=== PATIENT | female | born 1945 | race Caucasian/White ===

== ENCOUNTER → 2016-10-06 | Outpatient (CLI) | payer MEDICARE | END | disposition home or self-care (01) | LOC: GMAL 10:53 | PROVIDERS: ATTEND Family Medicine | DX: D51.3 Other dietary vitamin B12 deficiency anemia (principal) ==

== ENCOUNTER → 2016-11-19 | Outpatient (CLI) | payer MEDICARE ==
--- NOTE | 2016-11-21 05:54 | MRI ---
Procedure: MR right shoulder EXTREMITY WITHOUT THEN WITH IV CONTRAST Exam Date: 11/19/2016 12:00 AM CDT Ordering Provider: Yolie Spangler Clinical Indication: SHOULDER PAIN Comparison: None TECHNIQUE: Multiplanar, multi sequence MRI images of the right shoulder were obtained with and without IV contrast. FINDINGS: Increased signal and thinning of the distal supraspinatus tendons compatible with tendinosis. Otherwise, no high-grade partial or full-thickness rotator cuff tear. Rotator cuff muscle bulk is normal in signal and morphology. Long head of the biceps is well situated within the intertubercular groove. Biceps labral anchor is intact. Labrum is intact. Mild degenerative changes of the acromioclavicular joint. No fluid seen within the subdeltoid/subacromial bursa. Type 2 acromion is noted. Glenohumeral joint cartilage is intact. No large joint effusion or loose body. Marrow signal is otherwise unremarkable without fracture or subluxation. No pathologic enhancement on postcontrast imaging IMPRESSION: 1. Mild supraspinatus distal tendinosis without significant rotator cuff tear. 2. Mild AC joint degenerative changes. 3. Otherwise, unremarkable right shoulder MRI with and without IV contrast. Electronically signed by: Neel Spears MD 11/21/2016 5:53 AM CDT
== END ==
LOC: MRI 12:58
PROVIDERS: ATTEND Nurse Practitioner Family
DX: M25.519 Pain in unspecified shoulder (principal)

== ENCOUNTER → 2017-04-20 | Outpatient (CLI) | payer MEDICARE | END | disposition home or self-care (01) | LOC: GMAL 10:49 | PROVIDERS: ATTEND Family Medicine | DX: D51.3 Other dietary vitamin B12 deficiency anemia (principal); E55.9 Vitamin D deficiency, unspecified; Z79.899 Other long term (current) drug therapy ==

== ENCOUNTER → 2017-05-05 | Outpatient (CLI) | payer MEDICARE ==
--- NOTE | 2017-05-11 11:07 | MAM ---
EXAM DESCRIPTION: 3D Screening BILATERAL : Digital Mammography. CLINICAL HISTORY: 72 years Female SCREENING . No complaints. Remote family history of breast cancer. Postmenopausal. No HRT. COMPARISON: Baseline study at this facility.. No prior reports available. TECHNIQUE: Bilateral CC and MLO projection full-field images, 3-D tomosynthesis digital mammographic technique. Also bilateral synthesized CC/ MLO full-field images. CAD not utilized. FINDINGS: The breast parenchymal density pattern is: Heterogeneously dense breast tissue, which may obscure small masses. No skin thickening or nipple retraction bilateral solitary microcalcifications. Mass density versus focal asymmetry uniform density and similar to the surrounding fibroglandular tissues in the retroareolar left breast at 1200 clock position, 2 cm from the nipple. Partially well-defined margins. No calcifications. Bilateral intramammary lymph nodes. No focal, stellate mass or density, focal asymmetry , and no suspicious microcalcifications right breast. IMPRESSION: BI-RADS CATEGORY: 0 - INCOMPLETE- Need additional imaging evaluation. FOLLOW-UP: Recall for additional imagin-D tomosynthesis left breast full-field LM imaging. Targeted left breast ultrasound retroareolar region.. Written communication concerning the IMPRESSION and Follow-up, will be mailed to the patient and referring health care provider. Electronically signed by: Thaddeus Goddard MD 05/11/2017 11:06 AM [employer]
== END ==
LOC: MAMMO 11:00
PROVIDERS: ATTEND Family Medicine
DX: Z12.31 Encounter for screening mammogram for malignant neoplasm of breast (principal)

== ENCOUNTER → 2017-06-08 | Outpatient (CLI) | payer MEDICARE ==
--- NOTE | 2017-06-08 16:19 | US ---
EXAM DESCRIPTION: Breast,Left: Ultrasound CLINICAL HISTORY: 72 yearsFemaleABNORMAL MAMMOGRAM. Focal asymmetry versus mass density retroareolar left breast. COMPARISON: Digital diagnostic 3-D tomosynthesis left breast on this visit. Bilateral 3-D tomosynthesis screening mammography 05/05/2017. TECHNIQUE: Transcutaneous scanning of the retroareolar left breast utilizing two-dimensional and Doppler modes. Scanning performed by the colleter and Dr. Goddard. FINDINGS: Scanning at the 1200 clock position of the left breast 1 cm from the nipple. Mostly fibroglandular tissues which are heterogeneous with minimal fatty tissues. Oval-shaped mostly anechoic structure with well-defined mello, parallel orientation, and posterior enhancement features. Dimensions are 7.8 x 6.9 x 2.5 mm. Consistent with a cyst. No distinct solid mass. No parenchymal edema. No large calcifications. No skin changes. IMPRESSION: 1. Bi-Rads Category 2: Benign. 2. Please refer to diagnostic 3-D tomosynthesis mammogram and report on this visit. The FINDINGS and the FOLLOW-UP plan were reviewed in person with the patient after the examination. Written communication explaining the IMPRESSION and FOLLOW-UP will be mailed to the patient and referring care provider. Electronically signed by: Thaddeus Goddard MD 06/08/2017 4:18 PM CDT
--- NOTE | 2017-06-08 16:20 | MAM ---
EXAM DESCRIPTION: 3D Diagnostic, Left: Digital Mammography CLINICAL HISTORY: 72 yearsFemaleABNORMAL MAMMOGRAM . Mass density versus focal asymmetry retroareolar left breast.. COMPARISON: 3-D screening bilateral examination 05/05/2017.. Targeted left breast ultrasound following this examination. Report from prior examination also reviewed. TECHNIQUE: Left breast LM projection full-field images, 3-D tomosynthesis digital mammographic technique. Also left breast synthesized LM full-field images. CAD not utilized. FINDINGS: Left breast parenchymal density pattern is: Heterogeneously dense breast tissue, which may obscure small masses. No skin thickening or nipple retraction focal asymmetry is seen 2 cm from the nipple at the 1200 clock position. Same density as the surrounding tissues. Margins are not well-defined. No associated microcalcifications. Ultrasound: Scanning at the 1200 clock position of the left breast 1 cm from the nipple. Mostly fibroglandular tissues which are heterogeneous with minimal fatty tissues. Oval-shaped mostly anechoic structure with well-defined mello, parallel orientation, and posterior enhancement features. Dimensions are 7.8 x 6.9 x 2.5 mm. Consistent with a cyst. No distinct solid mass. No parenchymal edema. No large calcifications. No skin changes. IMPRESSION: BI-RADS CATEGORY: 2 - BENIGN FINDINGS. FOLLOW UP: Return to routine digital bilateral screening, one year interval from April 2017. The FINDINGS and the FOLLOW-UP plan were reviewed in person with the patient after the examination. Written communication explaining the IMPRESSION and FOLLOW-UP will be mailed to the patient and referring care provider. According to the [employer], yearly mammograms are recommended starting at age 40 and continuing as long as a woman is in good health. Any breast change noted on a breast self-exam should be reported promptly to the patient's healthcare provider. Breast MRI is recommended for women with an approximately 20-25% or greater lifetime risk of breast cancer, including women with a strong family history of breast or ovarian cancer and women who have been treated for Hodgkin's disease. A negative mammographic report should not delay tissue diagnosis in patients with significant clinical history or physical findings. Extremely dense breast tissue limits the sensitivity of digital mammography. Electronically signed by: Thaddeus Goddard MD 06/08/2017 4:19 PM CDT
== END ==
LOC: MAMMO 10:00
PROVIDERS: ATTEND Family Medicine
DX: R92.8 Other abnormal and inconclusive findings on diagnostic imaging of breast (principal)
CPT/HCPCS: 76641; 77065; G0279

== ENCOUNTER → 2018-02-25 | Outpatient (CLI) | payer MEDICARE ==
--- NOTE | 2018-02-25 14:46 | US ---
US THYROID CLINICAL STATEMENT: NODULE. . No palpable mass. No thyroid surgery or therapy. COMPARISON: None FINDINGS: Size right thyroid lobe: 3.6 x 1.8 x 1.7 cm Size left thyroid lobe: 4.7 x 1.9 x 1.8 cm Size isthmus: 0.13 cm Estimated total number of nodules greater than or equal to 1 cm: 4 Nodule 1: Size: 1.0 x 0.5 x 0.4 cm Location: Right Mid Composition: solid or almost completely solid: 2 points Echogenicity: hyperechoic: 1 point Shape: wider than tall: 0 points Margins: smooth: 0 points Echogenic foci: none: 0 points ACR Total Points: 3; ACR TI-RADS risk category: TR3 - mildly suspicious nodule. Nodule 2: Size: 2.1 x 1.7 x 1.1 cm Location: Left Mid Composition: solid or almost completely solid: 2 points Echogenicity: hypoechoic: 2 points Shape: wider than tall: 0 points Margins: smooth: 0 points. Margins are more hypoechoic. Echogenic foci: none: 0 points ACR Total Points: 4; ACR TI-RADS risk category: TR4 - moderately suspicious nodule. Nodule 3: Size: 1.0 x 1.0 x 0.9 cm Location: Left Upper Composition: solid or almost completely solid: 2 points Echogenicity: hypoechoic: 2 points Shape: wider than tall: 0 points Margins: smooth: 0 points Echogenic foci: none: 0 points ACR Total Points: 4; ACR TI-RADS risk category: TR4 - moderately suspicious nodule. Nodule 4: Size: 1.5 x 1.4 x 0.9 cm Location: Left Lower Composition: solid or almost completely solid: 2 points Echogenicity: hypoechoic: 2 points Shape: wider than tall: 0 points Margins: smooth: 0 points Echogenic foci: none: 0 points ACR Total Points: 4; ACR TI-RADS risk category: TR4 - moderately suspicious nodule. No distinct solid mass or cyst in the surrounding soft tissues. No large calcifications or parenchymal edema. No overlying skin changes. Normal vascularity. IMPRESSION: 1. Nodule 1: ACR TI-RADS 2017 Category TR3. Recommend: No further follow-up. Based upon [employer] recommendations following ACR TI-RADS 2017 guidelines. Please see below. 2. Nodule 2: ACR TI-RADS 2017 Category TR4. Recommend: Ultrasound-guided fine needle aspiration 3. Nodule 3: ACR TI-RADS 2017 Category TR4. Recommend: Follow-up ultrasound in 1 year. 4. Nodule 4: ACR TI-RADS 2017 Category TR4. Recommend: Ultrasound-guided fine needle aspiration. 5. Soft tissue around the thyroid gland is unremarkable. *ACR TI-RADS 2017 Recommendations: TR1: No FNA or follow up TR2: No FNA or follow up TR3: FNA if >/= 2.5 cm, follow up if 1.5 - 2.4 cm in 1, 3, and 5 years TR4: FNA if >/= 1.5 cm, follow up if 1.0 - 1.4 cm in 1, 2, 3, and 5 years TR5: FNA if >/= 1.0 cm, follow up if 0.5 - 0.9 cm every year for 5 years ACR TI-RADS recommends that no more than two nodules with the highest ACR TI-RADS total point should be biopsied and no more than four nodules should be followed. Electronically signed by: Thaddeus Goddard MD 02/25/2018 2:45 PM [facility], [place]
== END ==
LOC: US 10:00
PROVIDERS: ATTEND Family Medicine
DX: E04.1 Nontoxic single thyroid nodule (principal)

== ENCOUNTER → 2018-03-10 | Outpatient (CLI) | payer MEDICARE ==
--- NOTE | 2018-03-10 18:15 | US ---
Thyroid Ultrasound Biopsy CLINICAL INFORMATION: 2 nodules in the left lobe meeting ACR criteria for fine needle aspiration and sampling. TECHNIQUE: Procedure was explained to the patient with risks and benefits. The patient gave verbal and written consent. Sterile preparation draping. 1% xylocaine dermal anesthetic 9-1 mixture with sodium bicarbonate. Sterile ultrasound guidance. A total of 6 passes into anterior nodule left lobe; 3 needle samplings with a separate 1.5 inch, 25-gauge needle per sample, and 3 aspirations, with a separate 1.5 inch, 25-gauge needle/10-cc syringe set, per aspiration. Each sample was placed on a separate slide and fixed in 95% alcohol container. Saccomanno fluid drawn into aspirate needle and rinse injected into Saccomanno container. This procedure was repeated for more inferior posterior nodule in the left lobe. Specimens to be sent for pathologic examination at remote facility. . Patient tolerated procedure well except for minimal discomfort and tenderness in the left neck.. Biopsy #: 1 Nodule reference number based on prior diagnostic ultrasound:2 Maximum size: 2.1 cm Location: left; mid. Also anterior location. ACR TI-RADS risk category: TR4 (4-6 points) Reason for biopsy: meets ACR TI-RADS criteria Biopsy #: 2 Nodule reference number based on prior diagnostic ultrasound:4 Maximum size: 1.5 cm Location: left; lower. Superior and inferior calcification in the nodule. ACR TI-RADS risk category: TR4 (4-6 points) Reason for biopsy: meets ACR TI-RADS criteria Complications: None IMPRESSION: Successful ultrasound guided fine needle aspiration of two thyroid nodules in the left lobe. Pathology results are pending at remote laboratory. Electronically signed by: Thaddeus Goddard MD 03/10/2018 6:14 PM [facility]
== END ==
LOC: US 09:44
PROVIDERS: ATTEND Family Medicine
DX: E04.1 Nontoxic single thyroid nodule (principal)

== ENCOUNTER → 2018-10-05 | Outpatient (CLI) | payer BC, MEDICARE ==
--- NOTE | 2018-10-06 20:34 | MAM ---
EXAM DESCRIPTION: 3D Screening BILATERAL : Digital Mammography. CLINICAL HISTORY: 73 years Female ANNUAL SCREENING . No complaints or personal history of breast cancer. Remote family history of breast cancer. Childbirth. Postmenopausal 30+ years. No HRT. Lifetime risk of developing breast cancer (Tyrer-Cuzick model)(%): 2.9. COMPARISON: Bilateral screening digital breast tomosynthesis 05/05/2017. TECHNIQUE: Bilateral CC and MLO projection full-field images, digital tomosynthesis mammographic technique. Bilateral digital 2-D full-field MLO images. CAD not available for tomosynthesis or 2-D images. FINDINGS: The breast parenchymal density pattern is: Heterogeneously dense breast tissue, which may obscure small masses. No skin thickening or nipple retraction. Fibroglandular tissues involving the central breast bilaterally with a nodular pattern predominating. Few bilateral solitary microcalcifications. No new focal, stellate mass or density, focal asymmetry , and no suspicious microcalcifications bilaterally. Stable mammograms compared to prior study. IMPRESSION: Benign exam. BIRAD CATEGORY: 2 BENIGN FINDINGS. RECOMMENDATIONS: FOLLOW UP: Routine digital bilateral mammographic screening, one year interval from September 2018. Written communication explaining the IMPRESSION and follow-up, will be mailed to the patient and referring health care provider. According to the [employer], yearly mammograms are recommended starting at age 40 and continuing as long as a woman is in good health. Any breast change noted on a breast self-exam should be reported promptly to the patient's healthcare provider. Breast MRI is recommended for women with an approximately 20-25% or greater lifetime risk of breast cancer, including women with a strong family history of breast or ovarian cancer and women who have been treated for Hodgkin's disease. A negative mammographic report should not delay tissue diagnosis in patients with significant clinical history or physical findings. Extremely dense breast tissue limits the sensitivity of digital mammography. Electronically signed by: Thaddeus Goddard MD 10/06/2018 8:32 PM CDT
== END ==
LOC: MAMMO 12:09
PROVIDERS: ATTEND Family Medicine
DX: Z12.31 Encounter for screening mammogram for malignant neoplasm of breast (principal)

== ENCOUNTER → 2019-03-27 | Outpatient (CLI) | payer BC, MEDICARE | LOC: LAB.O 11:00 | PROVIDERS: ATTEND Internal Medicine Rheumatology | DX: L40.59 Other psoriatic arthropathy (principal); Z79.899 Other long term (current) drug therapy ==

== ENCOUNTER → 2020-01-12 | Outpatient (CLI) | payer BC, MEDICARE | LOC: GMAL 11:43 | PROVIDERS: ATTEND Family Medicine | DX: D51.3 Other dietary vitamin B12 deficiency anemia (principal); R53.83 Other fatigue; L40.59 Other psoriatic arthropathy; E55.9 Vitamin D deficiency, unspecified; Z79.899 Other long term (current) drug therapy ==

== ENCOUNTER → 2020-04-01 | Outpatient (CLI) | payer BC, MEDICARE | LOC: LAB.O 10:06 | PROVIDERS: ATTEND Internal Medicine Rheumatology | DX: Z79.899 Other long term (current) drug therapy (principal); L40.59 Other psoriatic arthropathy ==